=== PATIENT | female | born 1950 | race Caucasian/White ===

== ENCOUNTER 2018-01-24 07:38 | Outpatient (CLI) | payer MEDICARE ==
--- NOTE | 2018-01-24 09:54 | CT ---
NONCONTRAST ENHANCED CT CHEST: HISTORY: A 30-year history of smoking, double mastectomy, status post chemoradiation. FINDINGS: Low-dose CT chest is performed. Bilateral breast implants seen. Surgical clips seen in the left axillary region. No definite evidence of mediastinal, axillary, or hilar lymphadenopathy is seen. Some minimal coronary artery calcification is seen in the LAD. No definite evidence of right-sided lung nodules seen. There is a tiny approximately 2.5 mm area of lung parenchymal nodular density in the left upper lobe. A 2nd right lower lobe posterior 5 mm nodular density is seen on axial image #47 and coronal reconstr ucted images #102. A 3rd lesion is also seen in the lateral aspect of the right middle lobe, axial i mage #35 and coronal image #59. As all 3 lesions are less than 6 mm in diameter, likely risk of cassie gnancy is quite low. Findings compatible with a lung RADS category 2. Repeat low-dose CT chest in 1 year is recommended. IMPRESSION: Lung RADS category 2, continue annual screening low-dose CT in 12 months. POS: [facility]
== END 2018-01-24 07:39 | disposition home or self-care (01) ==
LOC: CT 07:38
PROVIDERS: ATTEND Family Medicine
DX: F17.210 Nicotine dependence, cigarettes, uncomplicated (principal)
CPT/HCPCS: G0297

== ENCOUNTER 2018-01-24 08:32 | Outpatient (CLI) | payer MEDICARE ==
--- NOTE | 2018-01-24 10:09 | BD ---
DEXA SCAN: DATE: 01/24/2018. PROVIDED CLINICAL HISTORY: Menopause. FINDINGS: Comparison 04/11/2012. Lumbar Spine: BMD (g/cm2) L1 0.879 T-Score: -1.0 L2 0.931 T-Score: -0.9 L3 0.922 T-Score: -1.5 L4 0.941 T-Score: -1.1 L1-L4 0.919 T-Score: -1.2 Femoral Neck: 0.648 T-Score: -1.8 Total Femur: 0.826 T-Score: -0.9 Ten-Year Fracture Risk: Major osteoporotic fracture: 9:9%. Hip Fracture: 9%. Impression: Calculated bone mineral density meets WHO criteria for osteopenia in the left femoral neck and places the patient at increased risk for fracture. POS: [facility]
== END 2018-01-24 08:33 | disposition home or self-care (01) ==
LOC: BICMAMMO 08:32
PROVIDERS: ATTEND Family Medicine
DX: Z13.820 Encounter for screening for osteoporosis (principal); M85.89 Other specified disorders of bone density and structure, multiple sites; Z78.0 Asymptomatic menopausal state
CPT/HCPCS: 77080

== ENCOUNTER 2019-03-02 09:51 | Outpatient (CLI) | payer MEDICARE ==
--- NOTE | 2019-03-02 12:14 | CT ---
LOW DOSE CT SCAN CHEST WITHOUT IV CONTRAST FOR LUNG CANCER SCREENING: HISTORY: A 30-year history of smoking, double mastectomy and status post chemo/radiation. COMPARISON: 01/24/2018 FINDINGS: Bilateral breast implants are again seen. There are postop changes and surgical clips in the left axi lla. There are vascular calcifications without evidence of aneurysmal dilatation of the thoracic aort a. No pleural or pericardial effusions are seen. There is scarring in the left lung apices. There is peripheral honeycombing in a portion of the later al aspect of the left upper lobe. There is a 7 mm perifissural nodule on the left. The other tiny nod ules noted on the previous exam are not definitely seen on the current study. There are degenerative changes in the spine. IMPRESSION: Lung-RADS category 2 - benign. RECOMMENDATIONS: LDCT is recommended in 12 months. POS: [facility]
== END 2019-03-02 09:52 | disposition home or self-care (01) ==
LOC: CT 09:51
PROVIDERS: ATTEND Family Medicine
DX: Z12.2 Encounter for screening for malignant neoplasm of respiratory organs (principal); F17.210 Nicotine dependence, cigarettes, uncomplicated
CPT/HCPCS: G0297

== ENCOUNTER 2020-03-17 12:35 | Outpatient (CLI) | payer MEDICARE ==
--- NOTE | 2020-03-17 14:23 | CT ---
EXAM: CT Pulmonary Lung Scan PROVIDED CLINICAL HISTORY: Annual follow-up low-dose lung CT screening evaluation. Patient has history of nicotine dependence, c igarettes, uncomplicated. COMPARISON: 03/02/2019 FINDINGS: Stable pleural-based nodular density is again seen along the left major fissure. This was also seen o n study in 2018 but better imaged on current exam as well as more recent study in 2019. No additional discrete pulmonary nodule or mass is seen in the lungs bilaterally. There are stable minimal biapical pleural and parenchymal scarring with minimal honeycombing along th e lateral aspect of the left upper lobe. No pleural effusion is seen. Vascular calcifications are again seen in the coronary arteries and involving the thoracic aorta. Lack of intravenous contrast limits sensitivity for evaluation of vascular structures and mediastinum . However, no definite enlarged uterus tunnel lymph node is appreciated. Bilateral breast prostheses are again seen with stable surgical clips in the left axilla. Limited visualized upper abdomen demonstrates grossly normal nonenhanced CT appearance aside from sma ll hiatal hernia. Mild degenerative changes are seen in the spine. IMPRESSION: Lung RADS category 2-continued annual screening with low-dose CT thorax in 12 months is recommended.
== END 2020-03-17 12:36 | disposition home or self-care (01) ==
LOC: BICCT 12:35
PROVIDERS: ATTEND Family Medicine
DX: Z12.2 Encounter for screening for malignant neoplasm of respiratory organs (principal); F17.210 Nicotine dependence, cigarettes, uncomplicated
CPT/HCPCS: 71271

== ENCOUNTER 2020-03-17 12:57 | Outpatient (CLI) | payer MEDICARE ==
--- NOTE | 2020-03-17 14:31 | BD ---
DEXA BONE DENSITY STUDY: HISTORY: Menopausal state. FINDINGS: Lumbar Spine: BMD (g/cm2) L1 0.904 T-Score: -0.8 L2 0.947 T-Score: -0.7 L3 0.956 T-Score: -1.2 L4 1.013 T-Score: -0.4 L1-L4 0.959 T-Score: -0.8 Findings within normal limits with no increased risk for fracture, bone mineral density has increased approximately 4.3% from prior exam, 01/24/2018. Femoral Neck: 0.689 T-Score: -1.4 Total Femur: 0.791 T-Score: -1.2 Evidence for osteopenia with increased risk for fracture. Bone mineral density has decreased approximately 4.3% from 01/24/2018. FRAX SCORE: Major osteoporotic fracture 9.1%. Hip fracture 1.0%. POS: [facility]
== END 2020-03-17 12:58 | disposition home or self-care (01) ==
LOC: BICMAMMO 12:57
PROVIDERS: ATTEND Family Medicine
DX: Z13.820 Encounter for screening for osteoporosis (principal); M85.89 Other specified disorders of bone density and structure, multiple sites; Z78.0 Asymptomatic menopausal state
CPT/HCPCS: 77080

== ENCOUNTER 2024-04-13 13:59 | Emergency (ER) | payer MEDICARE ==
[2024-04-13] MEDS ORDERED: Acetaminophen 500 MG TAB ONE (14:56)
[2024-04-13] MEDS ORDERED: Morphine 4 MG/ML VIAL ONE (14:57)
[2024-04-13 15:20] LABS: Bacteria/HPF None Seen HPF (None Seen); Bilirubin Negative (Negative); Blood, Urine Negative (Negative); CAUTI Indications for Culture Dysuria,urgency,freq; Clarity Clear (Clear); Glucose, Urine (Dipstick) Normal (Negative); Ketone, Urine Trace mg/dL (Negative); Leukocyte Negative Leu/uL (Negative); Nitrite Negative (Negative); Protein, Urine (Dipstick) Negative (Neg-Trace); RBC/HPF 0-3 HPF (0-3); Specific Gravity, Urine 1.004 (1.002-1.036); Squamous Epithelial None Seen HPF (0-3); Urobilinogen Normal mg/dL (Less than 2); WBC/HPF None Seen HPF (0-3)
[2024-04-13 15:21] LABS: Urine Culture Reflex No No
== END 2024-04-13 16:35 | disposition home or self-care (01) ==
LOC: ERS 13:59
DX: R10.9 Unspecified abdominal pain (principal); R10.32 Left lower quadrant pain
CPT/HCPCS: 74176; 81001; J2270; 96374